=== PATIENT | female | born 1945 | race Caucasian/White ===

== ENCOUNTER 2024-01-06 15:38 | Inpatient (IN) | payer MEDICARE ==
[~2024-01-06] VITALS: Ht 167.6 cm; Wt 65.8 kg
[2024-01-06] MEDS ORDERED: LEVO100T PO (15:51)
[2024-01-06] MEDS ORDERED: ALEN70TA3 PO (15:51)
[2024-01-06] MEDS ORDERED: AMIT10TA6 PO (15:51)
[2024-01-06] MEDS ORDERED: RED600CA2 PO (15:51)
[2024-01-06] MEDS ORDERED: MAG HYDROX/AL HYDROX/SIMETH 30 ML LIQUID UDC PO PRN (16:30)
[2024-01-06] MEDS ORDERED: ACETAMINOPHEN 325 MG TABLET PO PRN (16:30)
[2024-01-06 17:49] VITALS: BP 140/80; TEMP 97.6; O2SAT 97
[2024-01-06 20:01] VITALS: BP 117/59; TEMP 98.1; O2SAT 100
[2024-01-06] MEDS: ZOLPIDEM 5 MG TABLET PO PRN (21:16)
[2024-01-06] MEDS: CLONAZEPAM 0.5 MG TABLET PO PRN (23:44)
[2024-01-07 08:01] VITALS: BP 98/60; TEMP 98; O2SAT 96
[2024-01-07 08:17] LABS: ALANINE AMINOTRANSFERASE 10 U/L (14-59); ALBUMIN 3.2 g/dL (3.4-5.0); ALKALINE PHOSPHATASE 97 U/L (50-136); ASPARTATE AMINOTRANSFERASE 11 U/L (15-37); BILIRUBIN,TOTAL 0.3 mg/dL (0.2-1.0); CALCIUM 9.2 mg/dL (8.5-10.1); CARBON DIOXIDE 27 mmol/L (21-32); CHLORIDE 103 mmol/L (98-107); GLUCOSE 123 mg/dL (74-106); POTASSIUM 3.9 mmol/L (3.5-5.1); SODIUM SERUM 132 mmol/L (136-145); TOTAL PROTEIN, SERUM 7.1 g/dL (6.4-8.2); UREA NITROGEN, BLOOD 22 mg/dL (7-18)
[2024-01-07 15:30] VITALS: BP 100/68; TEMP 98; O2SAT 96
[2024-01-07 20:02] VITALS: BP 106/64; TEMP 97.9; O2SAT 96
[2024-01-07] MEDS: risperiDONE 0.5 MG TABLET PO SCH (20:11)
[2024-01-07] MEDS: DIVALPROEX SPRINKLE 125 MG CAP.SPRINK PO SCH (20:11)
[2024-01-07] MEDS: AMITRIPTYLINE HCL 10 MG TABLET PO SCH (20:11)
[2024-01-08 08:02] VITALS: BP 106/60; TEMP 98; O2SAT 98
[2024-01-08 15:37] VITALS: BP 154/85; TEMP 98; O2SAT 98
[2024-01-08 20:21] VITALS: BP 106/53; TEMP 99; O2SAT 95
[2024-01-08 20:50] VITALS: TEMP 98.4
[2024-01-09 07:55] VITALS: BP 106/82; TEMP 98; O2SAT 96
[2024-01-09 16:06] VITALS: BP 120/60; TEMP 98; O2SAT 96
[2024-01-09 20:00] VITALS: BP 124/70; TEMP 97.9; O2SAT 97
[2024-01-10 08:11] VITALS: BP 123/76; TEMP 98.5; O2SAT 97
[2024-01-10] MEDS: ENSURE ENLIVE (VAN) 240 ML LIQUID PO SCH (15:11)
[2024-01-10 16:11] VITALS: BP 116/68; TEMP 98.3; O2SAT 97
[2024-01-10 20:00] VITALS: BP 151/83; TEMP 97.7; O2SAT 96
[2024-01-11 07:59] VITALS: BP 112/62; TEMP 98.3; O2SAT 97
[2024-01-11 16:59] VITALS: BP 127/75; TEMP 98; O2SAT 97
[2024-01-11 20:22] VITALS: BP 141/75; TEMP 98; O2SAT 98
[2024-01-12 08:03] VITALS: BP 126/70; TEMP 98.1; O2SAT 97
[2024-01-12 16:31] VITALS: BP 137/80; TEMP 98; O2SAT 97
[2024-01-12 20:00] VITALS: BP 122/73; TEMP 97.7; O2SAT 92
[2024-01-13 08:06] VITALS: BP 123/58; TEMP 98; O2SAT 96
[2024-01-13] MEDS: LEVOTHYROXINE SODIUM 100 MCG TABLET PO SCH (14:09)
[2024-01-13 15:29] VITALS: BP 121/68; TEMP 98; O2SAT 94
[2024-01-13 20:00] VITALS: BP 158/77; TEMP 98.1; O2SAT 96
[2024-01-13] MEDS: ATORVASTATIN 20 MG TABLET PO SCH (20:41)
[2024-01-14] MEDS: ALENDRONATE SODIUM 70 MG TABLET PO SCH (07:00)
[2024-01-14 09:02] VITALS: BP 97/54; TEMP 98; O2SAT 96
[2024-01-14 15:26] VITALS: BP 106/65; TEMP 98.6; O2SAT 96
[2024-01-14 20:00] VITALS: BP 122/81; TEMP 99; O2SAT 97
[2024-01-14 20:16] VITALS: TEMP 98.4
[2024-01-15 08:01] VITALS: BP 142/67; TEMP 98; O2SAT 98
[2024-01-15 15:08] VITALS: BP 125/61; TEMP 98; O2SAT 99
[2024-01-15 19:55] VITALS: BP 136/66; TEMP 98.1; O2SAT 98
[2024-01-16 07:55] VITALS: BP 115/63; TEMP 98.2; O2SAT 98
[2024-01-16 15:00] VITALS: BP_SYST 108; BP_SYST 111; BP_DIAS 66; BP_DIAS 69; TEMP 97.9; TEMP 98; O2SAT 96; O2SAT 98
[2024-01-16 20:18] VITALS: BP 111/64; TEMP 97.9; O2SAT 96
[2024-01-17 08:19] VITALS: BP 123/71; TEMP 97.9; O2SAT 97
[2024-01-17 08:22] LABS: EOSINOPHILS # (AUTO) 0.1 K/uL (0.0-0.7); EOSINOPHILS % (AUTO) 2.8 % (0.0-7.0); HEMATOCRIT 32.4 % (31.2-41.9); HEMOGLOBIN 10.2 g/dL (10.9-14.3); LYMPHOCYTES # (AUTO) 1.2 K/uL (0.8-4.8); LYMPHOCYTES % (AUTO) 28.8 % (20.5-51.5); MEAN CORPUSCULAR HEMOGLOBIN 25.4 uug (24.7-32.8); MEAN CORPUSCULAR HGB CONC 31 g/dL (32.3-35.6); MEAN CORPUSCULAR VOLUME 81.2 fL (75.5-95.3); MONOCYTES # (AUTO) 0.6 K/uL (0.1-1.30); NEUTROPHILS # (AUTO) 2.2 K/uL (1.8-8.9); NEUTROPHILS % (AUTO) 53.4 % (38.5-71.5); PLATELET COUNT (AUTO) 183 K/uL (179-408); RED BLOOD CELL COUNT(AUTO) 3.99 MIL/uL (3.63-4.92); RED CELL DISTRIBUTION WIDTH 14.5 % (12.3-17.7); WHITE BLOOD COUNT (AUTO) 4.2 K/uL (3.8-11.8)
[2024-01-17 08:28] LABS: DIFFERENTIAL COMMENT 1
[2024-01-17 08:44] LABS: THYROID STIMULATING HORMONE 14.671 mIU/mL (0.358-3.740)
[2024-01-17 09:12] LABS: ALANINE AMINOTRANSFERASE 16 U/L (14-59); ALBUMIN 2.4 g/dL (3.4-5.0); ALKALINE PHOSPHATASE 81 U/L (50-136); ASPARTATE AMINOTRANSFERASE 13 U/L (15-37); BILIRUBIN,TOTAL 0.4 mg/dL (0.2-1.0); CALCIUM 8.9 mg/dL (8.5-10.1); CARBON DIOXIDE 32 mmol/L (21-32); CHLORIDE 106 mmol/L (98-107); CREATININE 0.8 mg/dL (0.6-1.3); GLUCOSE 114 mg/dL (74-106); MAGNESIUM 2.5 mg/dL (1.8-2.4); SODIUM SERUM 142 mmol/L (136-145); TOTAL PROTEIN, SERUM 5.8 g/dL (6.4-8.2); UREA NITROGEN, BLOOD 26 mg/dL (7-18)
[2024-01-17 16:56] VITALS: BP 136/84; TEMP 97.9; O2SAT 97
[2024-01-17 21:29] VITALS: BP 138/69; TEMP 98; O2SAT 98
[2024-01-18 08:10] VITALS: BP 108/65; TEMP 98; O2SAT 97
[2024-01-18] MEDS: DIVALPROEX SPRINKLE 125 MG CAP.SPRINK PO SCH (12:09)
[2024-01-18 16:37] VITALS: BP 132/74; TEMP 98; O2SAT 97
[2024-01-18 20:05] VITALS: BP 116/66; TEMP 98.1; O2SAT 96
[2024-01-19] MEDS: MAGNESIUM HYDROXIDE 30 ML LIQUID UDC PO PRN (05:35)
[2024-01-19 08:10] VITALS: BP 123/71; TEMP 98.4; O2SAT 96
[2024-01-19 16:26] VITALS: BP 126/75; TEMP 99.1; O2SAT 96
[2024-01-19 20:13] VITALS: BP 126/71; TEMP 98.1; O2SAT 96
[2024-01-20 08:30] VITALS: BP 140/68; TEMP 98; O2SAT 96
[2024-01-20 15:03] VITALS: BP 110/62; TEMP 98; O2SAT 98
[2024-01-20] MEDS: BISACODYL 5 MG TABLET.DR PO ONE (15:55)
[2024-01-20 19:55] VITALS: BP 109/63; TEMP 98.1; O2SAT 97
[2024-01-21] MEDS: ALENDRONATE SODIUM 70 MG TABLET PO SCH (06:35)
[2024-01-21 07:42] VITALS: BP 110/56; TEMP 98; O2SAT 96
[2024-01-21 16:01] VITALS: BP 115/71; TEMP 98; O2SAT 97
[2024-01-21 20:00] VITALS: BP 131/70; TEMP 99.3; O2SAT 98
[2024-01-21] MEDS: REMEDY ESSENTIAL ZINC PASTE 113 GM TOP PRN (20:22)
[2024-01-21 22:07] VITALS: TEMP 98.2
[2024-01-22 07:53] VITALS: BP 122/48; TEMP 98.4; O2SAT 96
[2024-01-22 15:30] VITALS: BP 107/53; TEMP 98.6; O2SAT 98
[2024-01-22 20:00] VITALS: BP 119/51; TEMP 98; O2SAT 98
[2024-01-23 07:51] VITALS: BP 138/54; TEMP 97.8; O2SAT 98
[2024-01-23 15:51] VITALS: BP 120/67; TEMP 97.6; O2SAT 98
[2024-01-23 19:53] VITALS: BP 114/58; TEMP 99.5; O2SAT 97
[2024-01-24 07:44] VITALS: BP 106/61; TEMP 98; O2SAT 96
[2024-01-24 16:16] VITALS: BP 128/77; TEMP 98.6; O2SAT 98
[2024-01-24 20:00] VITALS: BP 124/63; TEMP 98; O2SAT 98
[2024-01-25 07:57] VITALS: BP 131/64; TEMP 97.6; O2SAT 97
[2024-01-25 15:29] VITALS: BP 108/59; TEMP 98; O2SAT 97
[2024-01-25 20:07] VITALS: BP 110/60; TEMP 98.1; O2SAT 96
[2024-01-26 08:04] VITALS: BP 120/57; TEMP 98; O2SAT 96
[2024-01-26 15:54] VITALS: BP 120/90; TEMP 97.7; O2SAT 97
[2024-01-26 19:49] VITALS: BP 118/60; TEMP 97.9; O2SAT 96
[2024-01-27 07:44] VITALS: BP 137/70; TEMP 98; O2SAT 98
[2024-01-28] MEDS ORDERED: LEVOTHYROXINE SODIUM 112 MCG TABLET PO SCH (07:00)
== END 2024-01-27 11:30 | DRG 885 ==
LOC: ER 15:39 → GPS 16:08
PROVIDERS: ADMIT Psychiatry & Neurology Psychiatry; ATTEND Nurse Practitioner Acute Care
DX: F29 Unspecified psychosis not due to a substance or known physiological condition (principal); F02.83 Dementia in other diseases classified elsewhere, unspecified severity, with mood disturbance; E87.1 Hypo-osmolality and hyponatremia; F02.84 Dementia in other diseases classified elsewhere, unspecified severity, with anxiety; F02.811 Dementia in other diseases classified elsewhere, unspecified severity, with agitation; E03.9 Hypothyroidism, unspecified; G30.9 Alzheimer's disease, unspecified; E78.5 Hyperlipidemia, unspecified; M81.0 Age-related osteoporosis without current pathological fracture; R79.89 Other specified abnormal findings of blood chemistry; E88.09 Other disorders of plasma-protein metabolism, not elsewhere classified; K59.00 Constipation, unspecified; R73.03 Prediabetes; Z79.83 Long term (current) use of bisphosphonates; Z79.899 Other long term (current) drug therapy; M15.9 Polyosteoarthritis, unspecified; D50.9 Iron deficiency anemia, unspecified
CPT/HCPCS: 36415; 83735; 84100; 84443; 85025; J8499